=== PATIENT | male | born 1995 | race Caucasian/White ===

== ENCOUNTER 2017-09-24 03:50 | Emergency (ER) | payer BC ==
--- NOTE | 2017-09-24 04:13 | ED Physician Documentation ---
PD HPI NECK PAIN - Stated complaint Stated Complaint: NECK PAIN - Chief complaint Chief Complaint: Trauma Hd/Nk - History obtained from History obtained from: Patient - History of Present Illness Timing - onset: How many days ago (3) Timing - duration: Days Timing - details: Gradual onset Pain level now: 8 Location: Other (across mid-level posterior neck, L>R) Quality: Pain, Spasm Associated symptoms: Numbness (paresthesias across lower back). No: Fever, Weakness, Incontinent of urine, Unable to urinate, Incontinent of stool Improves with: Rest Worsened by: Movement Similar symptoms before: Has not had sx before Recently seen: Not recently seen - Additional information Additional information: patient complains of neck pain, onset three days ago when he was wrestling with a friend. His friend had patient in a chokehold around patients neck and pulled up words. The pain slowly worsened over the past three days until tonight , when he smoked marijuana, and had sudden worsening of the pain associated with spasms. Review of Systems Musculoskeletal: reports: Neck pain Neurologic: reports: Numbness. denies: Generalized weakness, Focal weakness, Altered mental status, Headache, LOC PD PAST MEDICAL HISTORY - Past Medical History Past Medical History: No - Past Surgical History Past Surgical History: No - Present Medications Home Medications: Ambulatory Orders Medication Instructions Recorded Confirmed Cyclobenzaprine [Flexeril] 10 mg PO TID PRN #20 tablet 09/24/17 Hydrocodone/Acetaminophen 1 - 2 each PO Q6HR PRN #14 tablet 09/24/17 [Hydrocodone-Acetamin 5-325 mg] - Allergies Allergies/Adverse Reactions: Allergies Allergy/AdvReac Type Severity Reaction Status Date / Time No Known Drug Allergies Allergy Verified 09/24/17 03:58 - Social History Does the pt smoke?: Yes Smoking Status: Current every day smoker Does the pt drink ETOH?: Yes Does the pt have substance abuse?: No Substance Use and Type: Marijuana - Immunizations Immunizations are current?: Yes - POLST Patient has POLST: No PD ED PE NORMAL - Vitals Vital signs reviewed: Yes - General General: Alert and oriented X 3, Well developed/nourished, Other (appears to be in mild/moderate painful discomfort) - HEENT HEENT: Atraumatic, PERRL, EOMI - Neck Neck: Supple, no meningeal sign, No bony TTP - Neuro Neuro: Alert and oriented X 3, 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, No motor deficit, No sensory deficit, Normal speech Results - Vitals Vitals: Vital Signs - 24 hr 09/24/17 09/24/17 03:52 05:29 Temperature 37.0 C Heart Rate 133 H 84 Respiratory 20 16 Rate Blood Pressure 137/60 H 107/43 L O2 Saturation 99 96 Oxygen O2 Source Room air - Rads (name of study) CT cervical spine Radiology: Prelim report reviewed, See rad report PD MEDICAL DECISION MAKING - ED course Complexity details: reviewed results, re-evaluated patient, considered differential, d/w patient, d/w family ED course: NAD on reevaluation, reports good symptoms relief - Sepsis Event Vital Signs: Vital Signs - 24 hr 09/24/17 09/24/17 03:52 05:29 Temperature 37.0 C Heart Rate 133 H 84 Respiratory 20 16 Rate Blood Pressure 137/60 H 107/43 L O2 Saturation 99 96 Oxygen O2 Source Room air Departure - Departure Disposition: 01 Home, Self Care Clinical Impression: Cervical strain, acute Condition: Good Instructions: ED Sprain Strain Neck Prescriptions: Hydrocodone/Acetaminophen [Hydrocodone-Acetamin 5-325 mg] 1 - 2 each PO Q6HR PRN #14 tablet PRN Reason: Pain Cyclobenzaprine [Flexeril] 10 mg PO TID PRN #20 tablet PRN Reason: Spasms Discharge Date/Time: 09/24/17 05:32
[2017-09-24] MEDS ORDERED: CYCLOBENZAPRINE 10 MG TABLET PO STA (04:28)
[2017-09-24] MEDS ORDERED: HYDROcod/ACETAM 5/325 MG TABLET PO STA (04:28)
--- NOTE | 2017-09-24 05:07 | CT Report ---
Procedure Date: 09/24/2017 Accession Number: [id number] / [id number] Procedure: CT - Cervical Spine W/O CPT Code: FULL RESULT: EXAM: CT CERVICAL SPINE WITHOUT CONTRAST DATE: 09/24/2017 04:52 AM. HISTORY: Neck pain, recent injury. COMPARISONS: None. TECHNIQUE: Thin-section axial images were acquired of the cervical spine without contrast. Post-processing: Coronal and sagittal reformats. Other: None. In accordance with CT protocol optimization, one or more of the following dose reduction techniques were utilized for this exam: automated exposure control, adjustment of mA and/or KV based on patient size, or use of iterative reconstructive technique. FINDINGS: Alignment: No scoliosis or spondylolisthesis. Bones: No fracture or bone lesion. Interspace Levels/Facets: C1-C2: Unremarkable. C2-C3: Unremarkable. C3-C4: Unremarkable. C4-C5: Unremarkable. C5-C6: Unremarkable. C6-C7: Unremarkable. C7-T1: Unremarkable. Musculature: Normal. No fatty atrophy. Other: The paravertebral and prevertebral soft tissues are unremarkable. The lung apices are clear. IMPRESSION: Negative cervical spine CT. No fracture or subluxation. [facility]
[2017-09-24 05:31] VITALS: BP 107/43
== END 2017-09-24 05:32 | disposition home or self-care (01) ==
LOC: ED 03:50
DX: S16.1XXA Strain of muscle, fascia and tendon at neck level, initial encounter (principal); X58.XXXA Exposure to other specified factors, initial encounter; Y93.72 Activity, wrestling
CPT/HCPCS: 72125; 99283; A9270